=== PATIENT | female | born 1940 | race African-American/Black ===

== ENCOUNTER 2017-08-23 10:57 | Outpatient (CLI) | payer MEDICARE | END 2017-08-23 10:58 | disposition home or self-care (01) | LOC: BICRAD 10:57 | PROVIDERS: ATTEND Internal Medicine | DX: I10 Essential (primary) hypertension (principal); R05 Cough; J44.9 Chronic obstructive pulmonary disease, unspecified; I70.90 Unspecified atherosclerosis | CPT/HCPCS: 71046 ==

== ENCOUNTER 2022-01-03 15:36 | Inpatient (IN) | payer MEDICARE ==
[2022-01-03] MEDS ORDERED: hydrALAZINE 20 MG/ML VIAL SLOW IVP SCH (21:00)
[2022-01-03] MEDS ORDERED: Ondansetron ODT 4 MG TAB PO PRN (21:05)
[2022-01-03] MEDS ORDERED: Dextrose 5% in Water 1,000 ML IV PRN (21:05)
[2022-01-03] MEDS ORDERED: Morphine 2 MG/ML VIAL SLOW IVP PRN (21:05)
[2022-01-03] MEDS ORDERED: Ondansetron PF 4 MG/2 ML Vial IVP PRN (21:05)
[2022-01-03] MEDS ORDERED: hydrALAZINE 20 MG/ML VIAL SLOW IVP PRN (21:05)
[2022-01-03] MEDS ORDERED: Dextrose 50% Abboject 50 ML SYRINGE SLOW IVP PRN (21:05)
[2022-01-03] MEDS ORDERED: Insulin Regular 300 UNITS/3 ML VIAL SC PRN (21:15)
[2022-01-03] MEDS ORDERED: traMADol HCl 50 MG TAB PO PRN (21:18)
[2022-01-03] MEDS ORDERED: Cyclobenzaprine 10 MG TAB PO PRN (21:18)
[2022-01-03] MEDS: traMADol HCl 50 MG TAB PO SCH (21:45)
[2022-01-03] MEDS: Acetaminophen 500 MG TAB PO SCH (23:54)
[2022-01-03] MEDS: Ketorolac Tromethamine 30 MG/ML VIAL IVP SCH (23:55)
[2022-01-03] MEDS ORDERED: Sodium Chloride 0.9% 1,000 ML IV SCH (23:55)
[2022-01-04 01:56] LABS: Bilirubin Negative (Negative); Blood, Urine Negative (Negative); Clarity Clear (Clear); Glucose, Urine (Dipstick) Normal (Negative); Ketone, Urine 20 mg/dL (Negative); Leukocyte Negative Leu/uL (Negative); Nitrite Negative (Negative); Protein, Urine (Dipstick) Negative (Neg-Trace); Specific Gravity, Urine 1.011 (1.002-1.036); Urobilinogen Normal mg/dL (Less than 2)
[2022-01-04] MEDS: traMADol HCl 50 MG TAB PO SCH ×4 (03:57→21:20)
[2022-01-04] MEDS: Ketorolac Tromethamine 30 MG/ML VIAL IVP SCH (05:31)
[2022-01-04] MEDS: Acetaminophen 500 MG TAB PO SCH ×4 (05:32→23:36)
[2022-01-04 06:08] LABS: #Eosinphils 0.3 thou/uL (0.0-0.7); #Lymphocytes 1.1 thou/uL (1.20-3.40); #Monocytes 0.6 thou/uL (0.11-0.59); #Neutrophils 4.1 thou/uL (1.40-6.50); %Basophils 0.6 % (0.0-1.0); %Eosinophils 4.2 % (0.0-10.0); %Lymphocytes 18.2 % (21.0-51.0); %Neutrophils 67.1 % (42.0-75.0); Hemoglobin 12.8 g/dL (12.0-16.0); Mean Corpuscular HGB CONC 31.6 g/dL (32.0-36.0); Mean Platelet Volume 6.7 fL (7.4-10.4); Platelet Count 193 thou/uL (130-400); Red Blood Cell (RBC) Count 4.02 mill/uL (4.20-5.40)
[2022-01-04 06:33] LABS: Anion Gap 10 mmol/L (10-20); BUN (Urea Nitrogen) 7 mg/dL (9.8-20.1); Calc. Creatinine Clearance 0 mL/min (70-130); Calcium 8.6 mg/dL (7.8-10.44); Carbon Dioxide 26 mmol/L (23-31); Chloride 105 mmol/L (98-107); Glucose 129 mg/dL (83-110); Magnesium 1.6 mg/dL (1.6-2.6); Potassium 3.3 mmol/L (3.5-5.1); Sodium 138 mmol/L (136-145)
[2022-01-04 06:35] LABS: Phosphorus 2.7 mg/dL (2.3-4.7)
[2022-01-04] MEDS ORDERED: Morphine 2 MG/ML VIAL SLOW IVP PRN (07:23)
[2022-01-04] MEDS ORDERED: Ibuprofen 800 MG TAB PO PRN (07:24)
[2022-01-04] MEDS ORDERED: Magnesium 2 GM/50 ML(in water) 2 GM in Premix Bag 1 BAG IVPB SCH (07:30)
[2022-01-04] MEDS ORDERED: Potassium Phosphate 30 MMOL, Magnesium Sulfate 2 GM in Sodium Chloride 0.9% 250 ML 250 ML IVPB SCH (07:30)
[2022-01-04] MEDS: Famotidine 20 MG TAB PO SCH ×2 (08:59→21:19)
[2022-01-04] MEDS ORDERED: Famotidine 20 MG TAB PO SCH (09:00)
[2022-01-04] MEDS: Senokot S 8.6-50 MG TAB PO SCH ×2 (09:00→21:20)
[2022-01-04] MEDS: Polyethylene Glycol 3350 17 GM Packet PO SCH (09:00)
[2022-01-04] MEDS ORDERED: CEFAZOLIN 2 GM in Sodium Chloride 0.9% 100 ML IVPB SCH (10:30)
[2022-01-04 13:12] VITALS: BMI 21.9
[2022-01-04] MEDS ORDERED: Dextrose 50% Abboject 50 ML SYRINGE ONE (13:46)
[2022-01-04] MEDS ORDERED: Sodium Chloride 0.9% 100 ML ONE (14:10)
[2022-01-04] MEDS ORDERED: CEFAZOLIN 2 GM VIAL ONE (14:10)
[2022-01-04] MEDS ORDERED: PROPOFOL 200 MG/20 ML VIAL ONE (14:23)
[2022-01-04] MEDS ORDERED: ePHEDrine 50 MG/ML VIAL ONE (14:23)
[2022-01-04] MEDS ORDERED: Ondansetron PF 4 MG/2 ML Vial ONE (14:23)
[2022-01-04] MEDS ORDERED: Lidocaine 1% PF 5 ML VIAL ONE (14:23)
[2022-01-04] MEDS ORDERED: fentaNYL Citrate/PF 100 MCG/2 ML SYRINGE ONE (14:23)
[2022-01-04] MEDS ORDERED: Glycopyrrolate 0.2 MG/ML 5 ML SYRINGE ONE (14:23)
[2022-01-04] MEDS ORDERED: PHENYLEPHRINE-NS 100 MCG/ML 10 ML SYRINGE ONE (14:23)
[2022-01-04] MEDS ORDERED: Dexamethasone 20 MG/5 ML VIAL ONE (14:23)
[2022-01-04] MEDS ORDERED: Promethazine HCl 25 MG/ML VIAL IVPB PRN (15:38)
[2022-01-04] MEDS ORDERED: PACU-Morphine 4MG/ML VIAL SLOW IVP PRN (15:38)
[2022-01-04] MEDS: CEFAZOLIN 2 GM in Sodium Chloride 0.9% 100 ML IVPB SCH (23:35)
[2022-01-05] MEDS: traMADol HCl 50 MG TAB PO SCH ×4 (02:33→20:50)
[2022-01-05] MEDS: CEFAZOLIN 2 GM in Sodium Chloride 0.9% 100 ML IVPB SCH (05:41)
[2022-01-05] MEDS: traMADol HCl 50 MG TAB PO PRN (05:41)
[2022-01-05] MEDS: Acetaminophen 500 MG TAB PO SCH ×4 (05:42→23:04)
[2022-01-05 05:45] LABS: #Lymphocytes 0.7 thou/uL (1.20-3.40); #Monocytes 0.7 thou/uL (0.11-0.59); #Neutrophils 7.5 thou/uL (1.40-6.50); %Basophils 0.1 % (0.0-1.0); %Eosinophils 0.1 % (0.0-10.0); %Monocytes 7.4 % (0.0-10.0); %Neutrophils 84.5 % (42.0-75.0); Hemoglobin 13.5 g/dL (12.0-16.0); Mean Corpuscular HGB CONC 31.3 g/dL (32.0-36.0); Mean Corpuscular Hemoglobin 31.7 pg (27.0-31.0); Mean Platelet Volume 6.8 fL (7.4-10.4); Platelet Count 233 thou/uL (130-400); Red Blood Cell (RBC) Count 4.27 mill/uL (4.20-5.40); White Blood Cell (WBC) Count 8.9 thou/uL (4.8-10.8)
[2022-01-05 06:24] LABS: Anion Gap 13 mmol/L (10-20); BUN (Urea Nitrogen) 13 mg/dL (9.8-20.1); Calc. Creatinine Clearance 48 mL/min (70-130); Calcium 8.8 mg/dL (7.8-10.44); Carbon Dioxide 23 mmol/L (23-31); Chloride 104 mmol/L (98-107); Glucose 226 mg/dL (83-110); Magnesium 2.1 mg/dL (1.6-2.6); Phosphorus 3.9 mg/dL (2.3-4.7); Potassium 4.9 mmol/L (3.5-5.1); Sodium 135 mmol/L (136-145)
[2022-01-05] MEDS: Polyethylene Glycol 3350 17 GM Packet PO SCH (08:51)
[2022-01-05] MEDS: Lisinopril 2.5 MG TAB PO SCH (08:51)
[2022-01-05] MEDS: Senokot S 8.6-50 MG TAB PO SCH ×2 (08:52→20:50)
[2022-01-05] MEDS: Famotidine 20 MG TAB PO SCH ×2 (08:52→20:50)
[2022-01-05] MEDS ORDERED: Non-Formulary Item 1 EACH (Metoprolol Succinate [Metoprolol Succinate] 200 MG Tab.Er.24h) PO SCH (09:00)
[2022-01-05] MEDS: Nicotine 7 MG PATCH TD SCH (18:40)
[2022-01-05] MEDS: Atorvastatin Calcium 40 MG TAB PO SCH (20:50)
[2022-01-05] MEDS: Aspirin 81 mg Enteric Coated Tablet PO SCH (20:50)
[2022-01-05] MEDS: Donepezil HCl 5 MG TAB PO SCH (20:50)
[2022-01-05] MEDS ORDERED: Atorvastatin Calcium 40 MG TAB PO SCH (21:00)
[2022-01-06] MEDS: traMADol HCl 50 MG TAB PO SCH ×4 (04:18→21:13)
[2022-01-06] MEDS: Acetaminophen 500 MG TAB PO SCH ×3 (05:11→17:26)
[2022-01-06 05:57] LABS: #Eosinphils 0.1 thou/uL (0.0-0.7); #Lymphocytes 1.6 thou/uL (1.20-3.40); #Monocytes 0.9 thou/uL (0.11-0.59); %Basophils 0.5 % (0.0-1.0); %Eosinophils 1.9 % (0.0-10.0); %Lymphocytes 20.3 % (21.0-51.0); %Monocytes 11.4 % (0.0-10.0); %Neutrophils 65.9 % (42.0-75.0); Hemoglobin 11.8 g/dL (12.0-16.0); Mean Corpuscular HGB CONC 31.9 g/dL (32.0-36.0); Mean Corpuscular Hemoglobin 32.2 pg (27.0-31.0); Mean Platelet Volume 6.9 fL (7.4-10.4); Platelet Count 234 thou/uL (130-400); RBC Distribution Width 11.9 % (11.5-14.5); Red Blood Cell (RBC) Count 3.65 mill/uL (4.20-5.40); White Blood Cell (WBC) Count 7.6 thou/uL (4.8-10.8)
[2022-01-06 06:39] LABS: Anion Gap 13 mmol/L (10-20); BUN (Urea Nitrogen) 13 mg/dL (9.8-20.1); Calc. Creatinine Clearance 57 mL/min (70-130); Calcium 8.3 mg/dL (7.8-10.44); Carbon Dioxide 21 mmol/L (23-31); Chloride 108 mmol/L (98-107); Glucose 104 mg/dL (83-110); Magnesium 1.9 mg/dL (1.6-2.6); Phosphorus 1.9 mg/dL (2.3-4.7); Potassium 4.1 mmol/L (3.5-5.1); Sodium 138 mmol/L (136-145)
[2022-01-06] MEDS ORDERED: Sodium Phosphate 30 MMOL in Sodium Chloride 0.9% 250 ML 250 ML IVPB SCH (08:00)
[2022-01-06] MEDS: Aspirin 81 mg Enteric Coated Tablet PO SCH ×2 (08:42→21:14)
[2022-01-06] MEDS: Lisinopril 2.5 MG TAB PO SCH (08:42)
[2022-01-06] MEDS: Famotidine 20 MG TAB PO SCH ×2 (08:42→21:15)
[2022-01-06] MEDS: Senokot S 8.6-50 MG TAB PO SCH ×2 (08:42→21:15)
[2022-01-06] MEDS: Polyethylene Glycol 3350 17 GM Packet PO SCH (08:42)
[2022-01-06] MEDS: Nicotine 7 MG PATCH TD SCH (17:26)
[2022-01-06] MEDS: Donepezil HCl 5 MG TAB PO SCH (21:14)
[2022-01-06] MEDS: Atorvastatin Calcium 40 MG TAB PO SCH (21:14)
[2022-01-07] MEDS: Acetaminophen 500 MG TAB PO SCH ×5 (00:05→19:46)
[2022-01-07] MEDS: traMADol HCl 50 MG TAB PO SCH ×4 (03:42→19:47)
[2022-01-07 05:49] LABS: #Basophils 0.1 thou/uL (0.0-0.2); #Eosinphils 0.2 thou/uL (0.0-0.7); #Lymphocytes 2.4 thou/uL (1.20-3.40); #Monocytes 1.1 thou/uL (0.11-0.59); #Neutrophils 4.3 thou/uL (1.40-6.50); %Basophils 0.6 % (0.0-1.0); %Eosinophils 2.5 % (0.0-10.0); %Lymphocytes 29.8 % (21.0-51.0); %Monocytes 13.5 % (0.0-10.0); %Neutrophils 53.5 % (42.0-75.0); Hemoglobin 12.7 g/dL (12.0-16.0); Mean Corpuscular HGB CONC 32.4 g/dL (32.0-36.0); Mean Corpuscular Hemoglobin 32.7 pg (27.0-31.0); Mean Platelet Volume 6.9 fL (7.4-10.4); Platelet Count 243 thou/uL (130-400); Red Blood Cell (RBC) Count 3.89 mill/uL (4.20-5.40); White Blood Cell (WBC) Count 8.1 thou/uL (4.8-10.8)
[2022-01-07] MEDS: Senokot S 8.6-50 MG TAB PO SCH ×2 (09:58→19:46)
[2022-01-07] MEDS: Aspirin 81 mg Enteric Coated Tablet PO SCH ×2 (09:58→19:46)
[2022-01-07] MEDS: Lisinopril 2.5 MG TAB PO SCH (09:58)
[2022-01-07] MEDS: Famotidine 20 MG TAB PO SCH ×2 (09:58→19:46)
[2022-01-07] MEDS: Polyethylene Glycol 3350 17 GM Packet PO SCH (09:58)
[2022-01-07] MEDS: Atorvastatin Calcium 40 MG TAB PO SCH (19:46)
[2022-01-07] MEDS: Donepezil HCl 5 MG TAB PO SCH (19:46)
[2022-01-08] MEDS: traMADol HCl 50 MG TAB PO SCH ×4 (03:42→20:50)
[2022-01-08] MEDS: Acetaminophen 500 MG TAB PO SCH ×3 (04:53→17:55)
[2022-01-08] MEDS: traMADol HCl 50 MG TAB PO PRN (04:53)
[2022-01-08] MEDS: Lisinopril 2.5 MG TAB PO SCH (09:16)
[2022-01-08] MEDS: Famotidine 20 MG TAB PO SCH ×2 (09:16→20:50)
[2022-01-08] MEDS: Senokot S 8.6-50 MG TAB PO SCH ×2 (09:18→20:49)
[2022-01-08] MEDS: Aspirin 81 mg Enteric Coated Tablet PO SCH ×2 (09:18→20:49)
[2022-01-08] MEDS: Polyethylene Glycol 3350 17 GM Packet PO SCH (09:18)
[2022-01-08] MEDS: Nicotine 21 MG PATCH TD SCH (09:18)
[2022-01-08] MEDS: Insulin Regular 300 UNITS/3 ML VIAL SC PRN ×2 (12:55→18:50)
[2022-01-08] MEDS: Atorvastatin Calcium 40 MG TAB PO SCH (20:49)
[2022-01-08] MEDS: Donepezil HCl 5 MG TAB PO SCH (20:50)
[2022-01-09] MEDS: Acetaminophen 500 MG TAB PO SCH ×3 (00:34→13:29)
[2022-01-09] MEDS: traMADol HCl 50 MG TAB PO SCH ×3 (03:50→15:49)
[2022-01-09] MEDS: Senokot S 8.6-50 MG TAB PO SCH (08:18)
[2022-01-09] MEDS: Lisinopril 2.5 MG TAB PO SCH (08:18)
[2022-01-09] MEDS: Aspirin 81 mg Enteric Coated Tablet PO SCH (08:18)
[2022-01-09] MEDS: Polyethylene Glycol 3350 17 GM Packet PO SCH (08:18)
[2022-01-09] MEDS: Famotidine 20 MG TAB PO SCH (08:19)
[2022-01-09] MEDS: Nicotine 21 MG PATCH TD SCH (08:19)
[2022-01-09] MEDS ORDERED: Lisinopril 2.5 MG TAB PO SCH (08:47)
[2022-01-09] MEDS ORDERED: Metoprolol Tartrate 25 MG TAB PO SCH (09:00)
[2022-01-09] MEDS: Insulin Regular 300 UNITS/3 ML VIAL SC PRN (13:55)
[2022-01-09] MEDS: Lisinopril 20 MG TAB PO SCH ×2 (14:10→15:52)
[2022-01-09 15:45] VITALS: TEMP 98.3
[2022-01-09 16:46] VITALS: BP 166/55
== END 2022-01-09 17:18 | DRG 482 ==
LOC: T4-A 20:05 → SURG A 01-04 18:08
PROVIDERS: ADMIT Student in an Organized Health Care Education/Training Program; ATTEND Surgery
PROC: 0QS704Z Reposition Left Upper Femur with Internal Fixation Device, Open Approach (ICD-10-PCS; principal; 2022-01-04)
DX: S72.002A Fracture of unspecified part of neck of left femur, initial encounter for closed fracture (principal); S92.342A Displaced fracture of fourth metatarsal bone, left foot, initial encounter for closed fracture; Z20.822 Contact with and (suspected) exposure to COVID-19; F03.90 Unspecified dementia, unspecified severity, without behavioral disturbance, psychotic disturbance, mood disturbance, and anxiety; I10 Essential (primary) hypertension; E78.5 Hyperlipidemia, unspecified; W18.30XA Fall on same level, unspecified, initial encounter; R00.1 Bradycardia, unspecified; Z79.899 Other long term (current) drug therapy
CPT/HCPCS: 36415; 36416; 71045; 76000; 80048; 81003; 83036; 83735; 84100; 85025; 93005; 93010; C1713; J0360; J0690; J1100; J1815; J1885; J2405; J2704; J3475; J3490; J7050; J7999; U0003; U0005